=== PATIENT | female | born 1995 | race Caucasian/White ===

== ENCOUNTER → 2017-07-20 | Outpatient (CLI) | payer OTHER ==
[~2017-07-20] MED LIST: AMPH25CA PO; HYDR-5688 PO; NAPR-201 PO; ONDA4TAB7 SL; QUET1TAB20 PO; SULF800T23 PO; ZLF/50 PO; [UNRECOGNIZED DRUG - CODE] TOP
== END | disposition home or self-care (01) ==
LOC: C.LABPBG 15:39
PROVIDERS: ATTEND Physician Assistant
DX: Z32.01 Encounter for pregnancy test, result positive (principal)